=== PATIENT | male | born 1935 | race Two or more races ===

== ENCOUNTER → 2019-07-15 | Outpatient (CLI) | payer MEDICARE ==
--- NOTE | 2019-07-16 13:12 | Diagnostic Imaging Report ---
MRI of the pelvis. History: Elevated PSA. Comparison: <None available>. Technique: Multiplanar, multisequence imaging of the pelvis was performed without contrast, using the body coil. Findings: Exam is limited without IV contrast. Detailed evaluation of the prostate is limited without endorectal coil. The prostate is diffusely heterogeneous on T2-weighted sequence and measures 3.5 x 4.5 x 4.2 cm, protruding slightly into the base of the bladder. There is mild diffuse bladder wall trabeculation. The visualized bowel, and bones are unremarkable. There is no evidence of free fluid or adenopathy. IMPRESSION: Mildly enlarged and heterogeneous prostate, with mild bladder trabeculation. Signed by: Brandon Kasper on 07/16/2019 1:10 PM
== END ==
LOC: MRI 10:32
PROVIDERS: ATTEND Urology
DX: R97.20 Elevated prostate specific antigen [PSA] (principal)
CPT/HCPCS: 72195